=== PATIENT | male | born 1960 | race Caucasian/White ===

== ENCOUNTER 2016-11-19 15:40 | Inpatient (IN) | payer MEDICAID ==
[~2016-11-19] VITALS: Ht 177.8 cm; Wt 71.7 kg
[2016-11-19] MEDS ORDERED: ONDANSETRON HCL 4MG/2ML VIAL IV STA (15:54)
[2016-11-19 16:39] LABS: BASOPHILS % 0.7 % (0.0-2.0); EOSINOPHILS % 1.7 % (0.0-5.0); HEMATOCRIT. 27.4 % (42.0-52.0); MEAN CORPUSCULAR VOLUME 85.5 fL (80.0-94.0); MEAN PLATELET VOLUME 7.9 fl (7.4-10.4); MONOCYTES % 7.7 % (2.0-8.0); NEUTROPHILS % 80.9 % (40.0-76.0); PLATELET 257 x1000/uL (130-400); RED BLOOD CELL COUNT 3.21 mill/uL (4.7-6.1); RED CELL DISTRIBUTION WIDTH 17.9 % (11.6-14.6)
[2016-11-19 16:43] LABS: CHLORIDE 94 mEq/L (98-107)
[2016-11-19 16:44] LABS: INR 1.1; PARTIAL THROMBOPLASTIN TIME 31.8 sec (23.4-31.0); PROTHROMBIN TIME 11.5 sec (9.4-11.6)
[2016-11-19 16:51] LABS: CARBON DIOXIDE 30 mEq/L (21-32)
[2016-11-19 16:53] LABS: TROPONIN I < 0.02 ng/mL (0.00-0.04)
[2016-11-19] MEDS ORDERED: HYDROCODONE/ACETAMINOPHEN 5/325MG TABLET PO ONE (17:45)
[2016-11-19] MEDS ORDERED: MAGNESIUM/ALUMINUM HYDROXIDE/SIMETHICONE 30ML UDC PO PRN (20:15)
[2016-11-19] MEDS ORDERED: IPRATROPIUM/ALBUTEROL 0.5-3(2.5)MG/3ML NEB INH PRN (20:15)
[2016-11-19] MEDS ORDERED: ONDANSETRON HCL 4MG/2ML VIAL IV PRN (20:15)
[2016-11-19] MEDS ORDERED: CLONIDINE 0.1MG TABLET PO PRN (20:15)
[2016-11-19] MEDS ORDERED: DOCUSATE SODIUM 100MG CAPSULE PO PRN (20:15)
[2016-11-19 22:37] LABS: CREATINE KINASE 35 IU/L (39-308); CREATINE KINASE MB FRACTION 2.4 ng/mL (0.5-3.6); TROPONIN I < 0.02 ng/mL (0.00-0.04)
[2016-11-20] VITALS (7 sets, daily range): BP systolic 142–170; BP diastolic 52–85
[2016-11-20] MEDS ORDERED: DEXTROSE 50% WATER 50ML SYRINGE IV PRN (02:15)
[2016-11-20] MEDS: HYDROCODONE/ACETAMINOPHEN 5/325MG TABLET PO PRN (05:20)
[2016-11-20] MEDS: BLOOD SUGAR DIAGNOSTIC STRIP TEST SCH ×4 (07:20→21:00)
[2016-11-20 07:30] LABS: HEMATOCRIT. 32.9 % (42.0-52.0); HEMOGLOBIN. 10.9 g/dL (14.0-18.0); MEAN CORPUSCULAR HEMOGLOBIN 28.7 pg (28.0-32.0); MEAN CORPUSCULAR VOLUME 86.8 fL (80.0-94.0); MEAN PLATELET VOLUME 8.5 fl (7.4-10.4); PLATELET 357 x1000/uL (130-400); RED BLOOD CELL COUNT 3.79 mill/uL (4.7-6.1); RED CELL DISTRIBUTION WIDTH 18.3 % (11.6-14.6)
[2016-11-20 07:44] LABS: CARBON DIOXIDE 28 mEq/L (21-32); CHLORIDE 93 mEq/L (98-107)
[2016-11-20] MEDS: INSULIN LISPRO 100 UNITS/ML SUBCUT SCH ×4 (07:50→21:00)
[2016-11-20 07:55] LABS: CREATINE KINASE 46 IU/L (39-308); CREATINE KINASE MB FRACTION 3.3 ng/mL (0.5-3.6); HDL CHOLESTEROL 54 mg/dL (40-59); LDL CHOLESTEROL 74 mg/dL (5-100); TROPONIN I < 0.02 ng/mL (0.00-0.04)
[2016-11-20 11:11] LABS: GLUCOSE URINE NEGATIVE (NEGATIVE); KETONES URINE TRACE (NEGATIVE); LEUKOCYTE ESTERASE URINE 3+ (NEGATIVE); NITRITE URINE NEGATIVE (NEGATIVE); OCCULT BLOOD URINE 2+ (NEGATIVE); PROTEIN URINE 4+ (NEGATIVE); SPECIFIC GRAVITY URINE 1.016 (1.005-1.030); UROBILINOGEN URINE 0.2 E.U./dL (0.2-1.0)
[2016-11-20 11:13] LABS: CLARITY URINE TURBID (CLEAR); COLOR URINE YELLOW (YELLOW)
[2016-11-20 11:56] LABS: *AMPHETAMINES SCREEN URINE NEGATIVE (NEGATIVE); *BARBITURATES SCREEN URINE NEGATIVE (NEGATIVE); *BENZODIAZEPINES SCREEN URINE NEGATIVE (NEGATIVE); *COCAINE SCREEN URINE NEGATIVE (NEGATIVE); CANNABINOID URINE SCREEN NEGATIVE (NEGATIVE); METHADONE URINE SCREEN NEGATIVE (NEGATIVE); OPIATES URINE SCREEN NEGATIVE (NEGATIVE); PHENCYCLIDINE URINE SCREEN NEGATIVE (NEGATIVE)
[2016-11-20] MEDS ORDERED: DOCUSATE SODIUM 100MG CAPSULE PO PRN (12:00)
[2016-11-20] MEDS ORDERED: DIPHENHYDRAMINE 50MG/ML VIAL IV PRN (12:00)
[2016-11-20] MEDS ORDERED: IPRATROPIUM/ALBUTEROL 0.5-3(2.5)MG/3ML NEB INH PRN (12:00)
[2016-11-20] MEDS ORDERED: HYDROCODONE/ACETAMINOPHEN 5/325MG TABLET PO PRN (12:00)
[2016-11-20] MEDS ORDERED: MAGNESIUM/ALUMINUM HYDROXIDE/SIMETHICONE 30ML UDC PO PRN (12:00)
[2016-11-20] MEDS ORDERED: ACETAMINOPHEN 325MG TABLET PO PRN (12:00)
[2016-11-20] MEDS ORDERED: ONDANSETRON HCL 4MG/2ML VIAL IV PRN (12:00)
[2016-11-20] MEDS ORDERED: GUAIFENESIN 200MG/10ML SUGAR FREE UDC PO PRN (12:00)
[2016-11-20] MEDS ORDERED: CLONIDINE 0.1MG TABLET PO PRN (12:00)
[2016-11-20] MEDS ORDERED: CEFTRIAXONE 1 G PREMIX 50 ML IV SCH (12:00)
[2016-11-20 12:01] LABS: PLATELET ESTIMATE NORMAL
[2016-11-20] MEDS ORDERED: ROCEPHIN (CEFTRIAXONE) XX SCH (12:30)
[2016-11-20] MEDS ORDERED: POTASSIUM CHLORIDE 20MEQ TABLET SR PO SCH (14:15)
[2016-11-20] MEDS: CEFTRIAXONE 1 G PREMIX 50 ML IV SCH (14:23)
[2016-11-20] MEDS ORDERED: POTASSIUM CHLORIDE INJ 40 MEQ in DEXT 5% WATER 250 ML IV SCH (14:30)
[2016-11-20] MEDS ORDERED: CHOL20004 PO (16:06)
[2016-11-20] MEDS ORDERED: CLON0.3T PO (16:06)
[2016-11-20] MEDS ORDERED: LEVO50TA PO (16:06)
[2016-11-20] MEDS ORDERED: TRAM50TA3 PO (16:06)
[2016-11-20] MEDS ORDERED: FURO80TA87 PO (16:06)
[2016-11-20] MEDS ORDERED: COR6 PO (16:06)
[2016-11-20] MEDS ORDERED: HYDR-4134 PO (16:06)
[2016-11-20] MEDS ORDERED: AMLO5TAB4 PO (16:06)
[2016-11-20] MEDS ORDERED: PROT40 PO (16:06)
[2016-11-20] MEDS ORDERED: DOXA2TAB PO (16:06)
[2016-11-20 16:42] LABS: CREATINE KINASE 35 IU/L (39-308); CREATINE KINASE MB FRACTION 2.7 ng/mL (0.5-3.6); TROPONIN I < 0.02 ng/mL (0.00-0.04)
[2016-11-20] MEDS: ACETAMINOPHEN 325MG TABLET PO PRN (16:52)
[2016-11-20 18:32] LABS: CHLORIDE 95 mEq/L (98-107)
[2016-11-20 18:40] LABS: CARBON DIOXIDE 28 mEq/L (21-32)
[2016-11-20] MEDS: DOXAZOSIN MESYLATE 2MG TABLET PO SCH (21:00)
[2016-11-20] MEDS: CARVEDILOL 6.25 MG TABLET PO SCH (21:00)
[2016-11-20] MEDS: TRAZODONE HCL 100MG TABLET PO SCH ×2 (21:02→22:12)
[2016-11-20] MEDS: CLONIDINE 0.3MG TABLET PO SCH (22:00)
[2016-11-20] MEDS: HYDRALAZINE HCL 50MG TABLET PO SCH (22:13)
[2016-11-20 22:50] LABS: CREATINE KINASE 36 IU/L (39-308); CREATINE KINASE MB FRACTION 3.5 ng/mL (0.5-3.6); TROPONIN I < 0.02 ng/mL (0.00-0.04)
[2016-11-21] VITALS: BP 105/60
[2016-11-21] MEDS: ACETAMINOPHEN 325MG TABLET PO PRN ×3 (02:45→22:10)
[2016-11-21 04:00] VITALS: BP 144/59
[2016-11-21] MEDS: HYDRALAZINE HCL 50MG TABLET PO SCH ×3 (06:00→22:08)
[2016-11-21] MEDS: CLONIDINE 0.3MG TABLET PO SCH ×3 (06:00→22:08)
[2016-11-21 06:28] LABS: BASOPHILS % 0.6 % (0.0-2.0); EOSINOPHILS % 0.8 % (0.0-5.0); HEMATOCRIT. 28.2 % (42.0-52.0); HEMOGLOBIN. 9.3 g/dL (14.0-18.0); LYMPHOCYTES % 7.7 % (20.0-50.0); MEAN CORPUSCULAR HEMOGLOBIN 28.5 pg (28.0-32.0); MEAN CORPUSCULAR VOLUME 86.4 fL (80.0-94.0); MEAN PLATELET VOLUME 8.2 fl (7.4-10.4); MONOCYTES % 6.3 % (2.0-8.0); NEUTROPHILS % 84.6 % (40.0-76.0); PLATELET 267 x1000/uL (130-400); RED BLOOD CELL COUNT 3.26 mill/uL (4.7-6.1); RED CELL DISTRIBUTION WIDTH 17.4 % (11.6-14.6)
[2016-11-21] MEDS: PANTOPRAZOLE 40MG DR TABLET PO SCH ×2 (06:33→07:20)
[2016-11-21] MEDS: LEVOTHYROXINE SODIUM 50MCG TABLET PO SCH ×2 (06:33→07:20)
[2016-11-21] MEDS: BLOOD SUGAR DIAGNOSTIC STRIP TEST SCH ×4 (06:34→21:00)
[2016-11-21] MEDS: INSULIN LISPRO 100 UNITS/ML SUBCUT SCH ×4 (06:37→22:10)
[2016-11-21 06:38] LABS: T4 FREE 1.05 ng/dL (0.76-1.46)
[2016-11-21 07:36] VITALS: BP 170/66
[2016-11-21] MEDS: AMLODIPINE 5MG TABLET PO SCH (09:00)
[2016-11-21] MEDS: CARVEDILOL 6.25 MG TABLET PO SCH ×2 (09:00→22:09)
[2016-11-21] MEDS: FUROSEMIDE 80MG TABLET PO SCH (10:26)
[2016-11-21] MEDS: CHOLECALCIFEROL (D3) 1000 UNIT TABLET PO SCH (10:26)
[2016-11-21] MEDS: CEFTRIAXONE 1 G PREMIX 50 ML IV SCH (10:30)
[2016-11-21 12:15] VITALS: BP 182/76
[2016-11-21] MEDS ORDERED: NAPROXEN 500MG TABLET PO PRN (15:45)
[2016-11-21 16:00] VITALS: BP 153/68
[2016-11-21 20:00] VITALS: BP 147/62
[2016-11-21] MEDS: EPOETIN ALFA 4000UNITS/ML VIAL SUBCUT SCH (22:08)
[2016-11-21] MEDS: TRAZODONE HCL 100MG TABLET PO SCH (22:08)
[2016-11-21] MEDS: DOXAZOSIN MESYLATE 2MG TABLET PO SCH (22:09)
[2016-11-22] VITALS: BP 159/66
[2016-11-22 04:00] VITALS: BP 159/66
[2016-11-22] MEDS: CLONIDINE 0.3MG TABLET PO SCH ×3 (06:00→23:09)
[2016-11-22] MEDS: HYDRALAZINE HCL 50MG TABLET PO SCH ×3 (06:09→23:08)
[2016-11-22] MEDS: BLOOD SUGAR DIAGNOSTIC STRIP TEST SCH ×4 (06:09→21:00)
[2016-11-22] MEDS: LEVOTHYROXINE SODIUM 50MCG TABLET PO SCH (06:09)
[2016-11-22] MEDS: PANTOPRAZOLE 40MG DR TABLET PO SCH (06:09)
[2016-11-22 06:39] LABS: BASOPHILS % 0.5 % (0.0-2.0); EOSINOPHILS % 1.2 % (0.0-5.0); HEMATOCRIT. 31.2 % (42.0-52.0); HEMOGLOBIN. 10.2 g/dL (14.0-18.0); LYMPHOCYTES % 7.8 % (20.0-50.0); MEAN CORPUSCULAR HEMOGLOBIN 28.4 pg (28.0-32.0); MEAN CORPUSCULAR VOLUME 86.8 fL (80.0-94.0); MEAN PLATELET VOLUME 8.1 fl (7.4-10.4); MONOCYTES % 8.8 % (2.0-8.0); NEUTROPHILS % 81.7 % (40.0-76.0); PLATELET 283 x1000/uL (130-400); RED BLOOD CELL COUNT 3.59 mill/uL (4.7-6.1); RED CELL DISTRIBUTION WIDTH 17.6 % (11.6-14.6)
[2016-11-22] MEDS: INSULIN LISPRO 100 UNITS/ML SUBCUT SCH ×4 (07:50→21:00)
[2016-11-22 08:14] VITALS: BP 147/65
[2016-11-22] MEDS: CEFTRIAXONE 1 G PREMIX 50 ML IV SCH (08:54)
[2016-11-22] MEDS: AMLODIPINE 5MG TABLET PO SCH (09:00)
[2016-11-22] MEDS: FUROSEMIDE 80MG TABLET PO SCH (09:00)
[2016-11-22] MEDS: CHOLECALCIFEROL (D3) 1000 UNIT TABLET PO SCH (09:00)
[2016-11-22] MEDS: CARVEDILOL 6.25 MG TABLET PO SCH ×2 (09:00→21:00)
[2016-11-22] MEDS: ACETAMINOPHEN 325MG TABLET PO PRN ×2 (09:18→23:15)
[2016-11-22 12:24] VITALS: BP 139/55
[2016-11-22 16:07] VITALS: BP 149/65
[2016-11-22 16:11] LABS: CLARITY URINE TURBID (CLEAR); COLOR URINE YELLOW (YELLOW); GLUCOSE URINE NEGATIVE (NEGATIVE); KETONES URINE NEGATIVE (NEGATIVE); LEUKOCYTE ESTERASE URINE 3+ (NEGATIVE); NITRITE URINE NEGATIVE (NEGATIVE); OCCULT BLOOD URINE 2+ (NEGATIVE); PROTEIN URINE 4+ (NEGATIVE); UROBILINOGEN URINE 0.2 E.U./dL (0.2-1.0)
[2016-11-22 20:00] VITALS: BP 156/64
[2016-11-22] MEDS: TRAZODONE HCL 100MG TABLET PO SCH (21:12)
[2016-11-22] MEDS: DOXAZOSIN MESYLATE 2MG TABLET PO SCH (21:12)
[2016-11-23] VITALS: BP 158/62
[2016-11-23 04:00] VITALS: BP 149/54
[2016-11-23] MEDS: HYDRALAZINE HCL 50MG TABLET PO SCH ×3 (06:00→21:39)
[2016-11-23] MEDS: CLONIDINE 0.3MG TABLET PO SCH ×3 (06:00→23:20)
[2016-11-23] MEDS ORDERED: NORMAL SALINE 0.9% 10 ML SYR ONE (06:22)
[2016-11-23] MEDS ORDERED: BUPIVACAINE HCL/PF 0.25% (2.5MG/ML) 10ML ONE (06:22)
[2016-11-23] MEDS ORDERED: BACITRACIN 50,000 UNITS/VIAL ONE (06:23)
[2016-11-23] MEDS ORDERED: LIDOCAINE HCL 1% 20ML VIAL (Pyxis) INJ ONE (06:23)
[2016-11-23] MEDS ORDERED: BUPIVACAINE HCL/PF 0.5% (5MG/ML) 10ML ONE (06:25)
[2016-11-23] MEDS: LEVOTHYROXINE SODIUM 50MCG TABLET PO SCH (06:45)
[2016-11-23] MEDS: BLOOD SUGAR DIAGNOSTIC STRIP TEST SCH ×4 (06:46→21:18)
[2016-11-23 07:17] LABS: BASOPHILS % 0.5 % (0.0-2.0); EOSINOPHILS % 0.9 % (0.0-5.0); HEMATOCRIT. 29.3 % (42.0-52.0); HEMOGLOBIN. 9.4 g/dL (14.0-18.0); LYMPHOCYTES % 7.9 % (20.0-50.0); MEAN CORPUSCULAR HEMOGLOBIN 27.5 pg (28.0-32.0); MEAN CORPUSCULAR VOLUME 86.1 fL (80.0-94.0); MEAN PLATELET VOLUME 8.4 fl (7.4-10.4); MONOCYTES % 8.6 % (2.0-8.0); NEUTROPHILS % 82.1 % (40.0-76.0); PLATELET 262 x1000/uL (130-400); RED CELL DISTRIBUTION WIDTH 17.8 % (11.6-14.6)
[2016-11-23] MEDS ORDERED: FENTANYL CITRATE/PF 50MCG/ML 2ML VIAL ONE (07:19)
[2016-11-23] MEDS ORDERED: MIDAZOLAM HCL 2 MG/2 ML VIAL ONE (07:19)
[2016-11-23] MEDS ORDERED: HYDROMORPHONE HCL/PF 2MG/ML CPJ IV PRN (07:45)
[2016-11-23] MEDS ORDERED: ONDANSETRON HCL 4MG/2ML VIAL IV PRN (07:45)
[2016-11-23] MEDS ORDERED: LABETALOL HCL 20MG/4ML CARPUJECT IV PRN (07:45)
[2016-11-23] MEDS ORDERED: MEPERIDINE HCL/PF 25MG/ML CPJ IV PRN (07:45)
[2016-11-23] MEDS: INSULIN LISPRO 100 UNITS/ML SUBCUT SCH ×4 (07:50→21:00)
[2016-11-23] MEDS: CARVEDILOL 6.25 MG TABLET PO SCH ×2 (07:58→21:00)
[2016-11-23] MEDS: AMLODIPINE 5MG TABLET PO SCH (07:58)
[2016-11-23] MEDS: FUROSEMIDE 80MG TABLET PO SCH (07:58)
[2016-11-23] MEDS: FAMOTIDINE 20MG TABLET PO SCH (07:59)
[2016-11-23] MEDS: CHOLECALCIFEROL (D3) 1000 UNIT TABLET PO SCH (07:59)
[2016-11-23] MEDS: CEFTRIAXONE 1 G PREMIX 50 ML IV SCH (09:00)
[2016-11-23 10:40] VITALS: BP 174/72
[2016-11-23 12:28] VITALS: BP 174/72
[2016-11-23] MEDS: HYDROCODONE/ACETAMINOPHEN 5/325MG TABLET PO PRN (12:35)
[2016-11-23] MEDS ORDERED: MORPHINE SULFATE 2 MG/ML CPJ (NOT FOR IM USE) IV PRN (13:00)
[2016-11-23 16:00] VITALS: BP 172/86
[2016-11-23] MEDS ORDERED: VANCOMYCIN 1500MG in DEXTROSE 5% WATER 250ML IV NR (18:00)
[2016-11-23] MEDS: MEROPENEM 500 MG in SODIUM CHLORIDE 0.9% 50 ML IV SCH (18:04)
[2016-11-23 20:28] VITALS: BP 153/62
[2016-11-23] MEDS: TRAZODONE HCL 100MG TABLET PO SCH (21:38)
[2016-11-23] MEDS: DOXAZOSIN MESYLATE 2MG TABLET PO SCH (21:38)
[2016-11-23] MEDS: EPOETIN ALFA 4000UNITS/ML VIAL SUBCUT SCH (21:38)
[2016-11-23] MEDS: ACETAMINOPHEN 325MG TABLET PO PRN (23:21)
[2016-11-24] VITALS: BP 161/66
[2016-11-24 04:00] VITALS: BP 163/60
[2016-11-24] MEDS: HYDRALAZINE HCL 50MG TABLET PO SCH ×3 (06:16→22:21)
[2016-11-24] MEDS: LEVOTHYROXINE SODIUM 50MCG TABLET PO SCH (06:16)
[2016-11-24] MEDS: CLONIDINE 0.3MG TABLET PO SCH ×3 (06:16→22:00)
[2016-11-24] MEDS: ACETAMINOPHEN 325MG TABLET PO PRN ×2 (06:16→22:21)
[2016-11-24] MEDS: BLOOD SUGAR DIAGNOSTIC STRIP TEST SCH ×4 (06:16→21:42)
[2016-11-24] MEDS: INSULIN LISPRO 100 UNITS/ML SUBCUT SCH ×4 (07:50→21:00)
[2016-11-24 07:55] LABS: BASOPHILS % 0.7 % (0.0-2.0); EOSINOPHILS % 1.9 % (0.0-5.0); HEMATOCRIT. 29.6 % (42.0-52.0); HEMOGLOBIN. 9.8 g/dL (14.0-18.0); MEAN CORPUSCULAR HEMOGLOBIN 28.5 pg (28.0-32.0); MEAN CORPUSCULAR VOLUME 86.1 fL (80.0-94.0); MEAN PLATELET VOLUME 8.5 fl (7.4-10.4); MONOCYTES % 8.9 % (2.0-8.0); NEUTROPHILS % 79.5 % (40.0-76.0); PLATELET 276 x1000/uL (130-400); RED BLOOD CELL COUNT 3.44 mill/uL (4.7-6.1); RED CELL DISTRIBUTION WIDTH 17.5 % (11.6-14.6)
[2016-11-24 08:27] VITALS: BP 153/62
[2016-11-24] MEDS: CARVEDILOL 6.25 MG TABLET PO SCH ×2 (08:49→22:22)
[2016-11-24] MEDS: AMLODIPINE 5MG TABLET PO SCH (08:52)
[2016-11-24] MEDS: FAMOTIDINE 20MG TABLET PO SCH (08:52)
[2016-11-24] MEDS: CHOLECALCIFEROL (D3) 1000 UNIT TABLET PO SCH (08:52)
[2016-11-24] MEDS: FUROSEMIDE 80MG TABLET PO SCH (08:52)
[2016-11-24 12:57] VITALS: BP 144/59
[2016-11-24 16:30] VITALS: BP 155/64
[2016-11-24] MEDS: MEROPENEM 500 MG in SODIUM CHLORIDE 0.9% 50 ML IV SCH (18:16)
[2016-11-24 20:00] VITALS: BP 152/62
[2016-11-24] MEDS: DOXAZOSIN MESYLATE 2MG TABLET PO SCH (22:21)
[2016-11-24] MEDS: TRAZODONE HCL 100MG TABLET PO SCH (22:22)
[2016-11-25] VITALS (7 sets, daily range): BP systolic 147–178; BP diastolic 59–85
[2016-11-25] MEDS: CLONIDINE 0.3MG TABLET PO SCH ×3 (06:00→21:43)
[2016-11-25] MEDS: HYDRALAZINE HCL 50MG TABLET PO SCH ×3 (06:00→21:43)
[2016-11-25] MEDS: BLOOD SUGAR DIAGNOSTIC STRIP TEST SCH ×4 (06:02→20:46)
[2016-11-25] MEDS: LEVOTHYROXINE SODIUM 50MCG TABLET PO SCH (06:03)
[2016-11-25] MEDS: INSULIN LISPRO 100 UNITS/ML SUBCUT SCH ×4 (07:35→21:00)
[2016-11-25] MEDS: CARVEDILOL 6.25 MG TABLET PO SCH ×2 (07:36→21:43)
[2016-11-25] MEDS: AMLODIPINE 5MG TABLET PO SCH (07:36)
[2016-11-25 07:55] LABS: BASOPHILS % 0.5 % (0.0-2.0); EOSINOPHILS % 1.9 % (0.0-5.0); HEMATOCRIT. 27.6 % (42.0-52.0); HEMOGLOBIN. 9.1 g/dL (14.0-18.0); LYMPHOCYTES % 9.6 % (20.0-50.0); MEAN CORPUSCULAR HEMOGLOBIN 28.3 pg (28.0-32.0); MEAN CORPUSCULAR VOLUME 85.4 fL (80.0-94.0); MEAN PLATELET VOLUME 8.7 fl (7.4-10.4); MONOCYTES % 9.1 % (2.0-8.0); NEUTROPHILS % 78.9 % (40.0-76.0); PLATELET 271 x1000/uL (130-400); RED BLOOD CELL COUNT 3.23 mill/uL (4.7-6.1); RED CELL DISTRIBUTION WIDTH 17.3 % (11.6-14.6)
[2016-11-25] MEDS: CHOLECALCIFEROL (D3) 1000 UNIT TABLET PO SCH (11:11)
[2016-11-25] MEDS: FUROSEMIDE 80MG TABLET PO SCH (11:12)
[2016-11-25] MEDS: ACETAMINOPHEN 325MG TABLET PO PRN (11:12)
[2016-11-25] MEDS: FAMOTIDINE 20MG TABLET PO SCH (11:12)
[2016-11-25] MEDS ORDERED: HYDROCODONE/ACETAMINOPHEN 5/325MG TABLET PO PRN (12:30)
[2016-11-25] MEDS ORDERED: VANCOMYCIN 1 G PREMIX 200 ML IV SCH (14:00)
[2016-11-25] MEDS: MEROPENEM 500 MG in SODIUM CHLORIDE 0.9% 50 ML IV SCH (19:25)
[2016-11-25] MEDS: EPOETIN ALFA 4000UNITS/ML VIAL SUBCUT SCH (20:44)
[2016-11-25] MEDS: DOXAZOSIN MESYLATE 2MG TABLET PO SCH (21:43)
[2016-11-25] MEDS: TRAZODONE HCL 100MG TABLET PO SCH (21:43)
[2016-11-26 00:20] VITALS: BP 165/62
[2016-11-26 06:38] LABS: BASOPHILS % 0.6 % (0.0-2.0); EOSINOPHILS % 2.1 % (0.0-5.0); HEMATOCRIT. 29.3 % (42.0-52.0); HEMOGLOBIN. 9.6 g/dL (14.0-18.0); LYMPHOCYTES % 10.5 % (20.0-50.0); MEAN CORPUSCULAR HEMOGLOBIN 28.3 pg (28.0-32.0); MEAN CORPUSCULAR VOLUME 86.1 fL (80.0-94.0); MEAN PLATELET VOLUME 7.8 fl (7.4-10.4); MONOCYTES % 9.6 % (2.0-8.0); NEUTROPHILS % 77.2 % (40.0-76.0); PLATELET 279 x1000/uL (130-400); RED CELL DISTRIBUTION WIDTH 17.5 % (11.6-14.6)
[2016-11-26] MEDS: CLONIDINE 0.3MG TABLET PO SCH ×3 (06:54→21:47)
[2016-11-26] MEDS: BLOOD SUGAR DIAGNOSTIC STRIP TEST SCH ×4 (06:54→20:27)
[2016-11-26] MEDS: HYDRALAZINE HCL 50MG TABLET PO SCH ×3 (06:54→21:43)
[2016-11-26] MEDS: LEVOTHYROXINE SODIUM 50MCG TABLET PO SCH (06:54)
[2016-11-26 07:00] VITALS: BP 156/62
[2016-11-26] MEDS: INSULIN LISPRO 100 UNITS/ML SUBCUT SCH ×4 (07:50→20:39)
[2016-11-26] MEDS: AMLODIPINE 5MG TABLET PO SCH (08:21)
[2016-11-26] MEDS: FAMOTIDINE 20MG TABLET PO SCH (08:22)
[2016-11-26] MEDS: CARVEDILOL 6.25 MG TABLET PO SCH ×2 (08:22→20:39)
[2016-11-26] MEDS: FUROSEMIDE 80MG TABLET PO SCH (08:22)
[2016-11-26] MEDS: CHOLECALCIFEROL (D3) 1000 UNIT TABLET PO SCH (08:22)
[2016-11-26] MEDS: LOSARTAN POTASSIUM 25 MG TABLET PO SCH (08:22)
[2016-11-26 12:32] VITALS: BP 140/61
[2016-11-26 16:02] VITALS: BP 137/51
[2016-11-26] MEDS: MEROPENEM 500 MG in SODIUM CHLORIDE 0.9% 50 ML IV SCH (17:04)
[2016-11-26] MEDS: ACETAMINOPHEN 325MG TABLET PO PRN ×2 (17:05→23:35)
[2016-11-26] MEDS: TRAZODONE HCL 100MG TABLET PO SCH (20:36)
[2016-11-26] MEDS: DOXAZOSIN MESYLATE 2MG TABLET PO SCH (20:36)
[2016-11-26 20:54] VITALS: BP 161/63
[2016-11-27 00:23] VITALS: BP 145/56
[2016-11-27 04:00] VITALS: BP 157/62
[2016-11-27] MEDS: CLONIDINE 0.3MG TABLET PO SCH ×3 (05:13→21:17)
[2016-11-27] MEDS: HYDRALAZINE HCL 50MG TABLET PO SCH ×3 (05:20→21:16)
[2016-11-27] MEDS: BLOOD SUGAR DIAGNOSTIC STRIP TEST SCH ×4 (06:21→21:16)
[2016-11-27] MEDS: LEVOTHYROXINE SODIUM 50MCG TABLET PO SCH (06:21)
[2016-11-27 06:56] LABS: BASOPHILS % 0.7 % (0.0-2.0); EOSINOPHILS % 1.9 % (0.0-5.0); HEMATOCRIT. 28.2 % (42.0-52.0); HEMOGLOBIN. 9.3 g/dL (14.0-18.0); LYMPHOCYTES % 11.7 % (20.0-50.0); MEAN CORPUSCULAR HEMOGLOBIN 28.4 pg (28.0-32.0); MEAN CORPUSCULAR VOLUME 85.9 fL (80.0-94.0); MEAN PLATELET VOLUME 7.9 fl (7.4-10.4); NEUTROPHILS % 77.7 % (40.0-76.0); PLATELET 277 x1000/uL (130-400); RED BLOOD CELL COUNT 3.29 mill/uL (4.7-6.1); RED CELL DISTRIBUTION WIDTH 17.6 % (11.6-14.6)
[2016-11-27 08:00] VITALS: BP 147/61
[2016-11-27] MEDS: LOSARTAN POTASSIUM 25 MG TABLET PO SCH (08:58)
[2016-11-27] MEDS: FUROSEMIDE 80MG TABLET PO SCH (08:58)
[2016-11-27] MEDS: FAMOTIDINE 20MG TABLET PO SCH (08:58)
[2016-11-27] MEDS: CHOLECALCIFEROL (D3) 1000 UNIT TABLET PO SCH (08:58)
[2016-11-27] MEDS: AMLODIPINE 5MG TABLET PO SCH (08:59)
[2016-11-27] MEDS: CARVEDILOL 6.25 MG TABLET PO SCH ×2 (08:59→21:16)
[2016-11-27] MEDS: INSULIN LISPRO 100 UNITS/ML SUBCUT SCH ×4 (09:00→21:00)
[2016-11-27 12:00] VITALS: BP 140/56
[2016-11-27 16:00] VITALS: BP 128/62
[2016-11-27] MEDS: MEROPENEM 500 MG in SODIUM CHLORIDE 0.9% 50 ML IV SCH (17:29)
[2016-11-27 20:00] VITALS: BP 164/69
[2016-11-27] MEDS: DOXAZOSIN MESYLATE 2MG TABLET PO SCH (21:15)
[2016-11-27] MEDS: TRAZODONE HCL 100MG TABLET PO SCH (21:16)
[2016-11-27] MEDS: ACETAMINOPHEN 325MG TABLET PO PRN (21:17)
[2016-11-28] VITALS: BP 155/63
[2016-11-28 04:00] VITALS: BP 146/99
[2016-11-28] MEDS: CLONIDINE 0.3MG TABLET PO SCH ×3 (06:00→22:00)
[2016-11-28] MEDS: HYDRALAZINE HCL 50MG TABLET PO SCH ×3 (06:00→22:00)
[2016-11-28] MEDS: LEVOTHYROXINE SODIUM 50MCG TABLET PO SCH (06:29)
[2016-11-28 06:45] LABS: FERRITIN 429 ng/mL (22-322)
[2016-11-28 06:46] LABS: CARCINO EMBRYONIC ANTIGEN 1.3 ng/ml
[2016-11-28] MEDS: BLOOD SUGAR DIAGNOSTIC STRIP TEST SCH ×4 (07:11→21:38)
[2016-11-28] MEDS: INSULIN LISPRO 100 UNITS/ML SUBCUT SCH ×4 (07:50→22:11)
[2016-11-28 08:00] VITALS: BP 151/57
[2016-11-28] MEDS: AMLODIPINE 5MG TABLET PO SCH (09:00)
[2016-11-28] MEDS: CARVEDILOL 6.25 MG TABLET PO SCH ×2 (09:00→22:05)
[2016-11-28] MEDS: LOSARTAN POTASSIUM 25 MG TABLET PO SCH (09:00)
[2016-11-28] MEDS: FAMOTIDINE 20MG TABLET PO SCH (09:10)
[2016-11-28] MEDS: FUROSEMIDE 80MG TABLET PO SCH (09:10)
[2016-11-28] MEDS: CHOLECALCIFEROL (D3) 1000 UNIT TABLET PO SCH (09:10)
[2016-11-28 09:12] LABS: VITAMIN B12 SERUM > 2000.0 pg/mL (211-911)
[2016-11-28] MEDS: ACETAMINOPHEN 325MG TABLET PO PRN ×2 (09:18→22:05)
[2016-11-28 09:36] LABS: BASOPHILS % 0.6 % (0.0-2.0); EOSINOPHILS % 2.6 % (0.0-5.0); HEMATOCRIT. 28.7 % (42.0-52.0); HEMOGLOBIN. 9.5 g/dL (14.0-18.0); LYMPHOCYTES % 9.6 % (20.0-50.0); MEAN CORPUSCULAR HEMOGLOBIN 28.5 pg (28.0-32.0); MEAN CORPUSCULAR VOLUME 85.8 fL (80.0-94.0); MEAN PLATELET VOLUME 7.9 fl (7.4-10.4); MONOCYTES % 6.6 % (2.0-8.0); NEUTROPHILS % 80.6 % (40.0-76.0); PLATELET 273 x1000/uL (130-400); RED BLOOD CELL COUNT 3.35 mill/uL (4.7-6.1); RED CELL DISTRIBUTION WIDTH 17.3 % (11.6-14.6)
[2016-11-28 12:01] VITALS: BP 171/85
[2016-11-28 16:00] VITALS: BP 172/70
[2016-11-28] MEDS: MEROPENEM 500 MG in SODIUM CHLORIDE 0.9% 50 ML IV SCH (17:00)
[2016-11-28] MEDS ORDERED: VANCOMYCIN 1 G PREMIX 200 ML IV NR (18:00)
[2016-11-28 20:00] VITALS: BP 154/57
[2016-11-28] MEDS ORDERED: EPOETIN ALFA 10000UNITS/ML VIAL SUBCUT SCH (21:00)
[2016-11-28] MEDS: DOXAZOSIN MESYLATE 2MG TABLET PO SCH (22:05)
[2016-11-28] MEDS: TRAZODONE HCL 100MG TABLET PO SCH (22:05)
[2016-11-29] VITALS (7 sets, daily range): BP systolic 129–166; BP diastolic 54–68
[2016-11-29] MEDS: CLONIDINE 0.3MG TABLET PO SCH ×3 (06:00→22:00)
[2016-11-29] MEDS: BLOOD SUGAR DIAGNOSTIC STRIP TEST SCH ×4 (06:36→21:00)
[2016-11-29] MEDS: LEVOTHYROXINE SODIUM 50MCG TABLET PO SCH (06:36)
[2016-11-29] MEDS: HYDRALAZINE HCL 50MG TABLET PO SCH ×3 (06:36→22:00)
[2016-11-29] MEDS: INSULIN LISPRO 100 UNITS/ML SUBCUT SCH ×4 (07:28→21:00)
[2016-11-29 08:06] LABS: BASOPHILS % 0.6 % (0.0-2.0); EOSINOPHILS % 2.4 % (0.0-5.0); HEMATOCRIT. 31.7 % (42.0-52.0); HEMOGLOBIN. 10.5 g/dL (14.0-18.0); LYMPHOCYTES % 13.8 % (20.0-50.0); MEAN CORPUSCULAR HEMOGLOBIN 28.3 pg (28.0-32.0); MEAN CORPUSCULAR VOLUME 85.8 fL (80.0-94.0); MEAN PLATELET VOLUME 8.2 fl (7.4-10.4); MONOCYTES % 8.7 % (2.0-8.0); NEUTROPHILS % 74.5 % (40.0-76.0); PLATELET 274 x1000/uL (130-400); RED CELL DISTRIBUTION WIDTH 16.9 % (11.6-14.6)
[2016-11-29] MEDS: CARVEDILOL 6.25 MG TABLET PO SCH ×2 (09:00→21:34)
[2016-11-29] MEDS: FUROSEMIDE 80MG TABLET PO SCH (09:07)
[2016-11-29] MEDS: FAMOTIDINE 20MG TABLET PO SCH (09:07)
[2016-11-29] MEDS: LOSARTAN POTASSIUM 25 MG TABLET PO SCH (09:07)
[2016-11-29] MEDS: CHOLECALCIFEROL (D3) 1000 UNIT TABLET PO SCH (09:07)
[2016-11-29] MEDS: AMLODIPINE 5MG TABLET PO SCH (09:08)
[2016-11-29] MEDS: ACETAMINOPHEN 325MG TABLET PO PRN ×2 (09:11→21:33)
[2016-11-29] MEDS: MEGESTROL ACETATE 400 MG/10 ML UDC PO SCH (13:00)
[2016-11-29] MEDS: ASCORBIC ACID 250 MG TABLET PO SCH (17:15)
[2016-11-29] MEDS: MEROPENEM 500 MG in SODIUM CHLORIDE 0.9% 50 ML IV SCH (17:15)
[2016-11-29] MEDS: DOXAZOSIN MESYLATE 2MG TABLET PO SCH (21:34)
[2016-11-29] MEDS: TRAZODONE HCL 100MG TABLET PO SCH (21:34)
[2016-11-30 05:11] VITALS: BP 153/55
[2016-11-30] MEDS: CLONIDINE 0.3MG TABLET PO SCH ×2 (05:21→14:40)
[2016-11-30] MEDS: BLOOD SUGAR DIAGNOSTIC STRIP TEST SCH ×3 (06:17→18:15)
[2016-11-30] MEDS: HYDRALAZINE HCL 50MG TABLET PO SCH ×2 (06:17→14:41)
[2016-11-30] MEDS: LEVOTHYROXINE SODIUM 50MCG TABLET PO SCH (06:17)
[2016-11-30 06:35] LABS: BASOPHILS % 0.5 % (0.0-2.0); EOSINOPHILS % 2.4 % (0.0-5.0); HEMATOCRIT. 32.4 % (42.0-52.0); HEMOGLOBIN. 10.7 g/dL (14.0-18.0); LYMPHOCYTES % 11.5 % (20.0-50.0); MEAN CORPUSCULAR HEMOGLOBIN 28.2 pg (28.0-32.0); MEAN CORPUSCULAR VOLUME 85.4 fL (80.0-94.0); MEAN PLATELET VOLUME 8.1 fl (7.4-10.4); MONOCYTES % 7.4 % (2.0-8.0); NEUTROPHILS % 78.2 % (40.0-76.0); PLATELET 279 x1000/uL (130-400); RED BLOOD CELL COUNT 3.79 mill/uL (4.7-6.1); RED CELL DISTRIBUTION WIDTH 17.6 % (11.6-14.6)
[2016-11-30] MEDS: INSULIN LISPRO 100 UNITS/ML SUBCUT SCH ×3 (07:50→17:50)
[2016-11-30 07:54] VITALS: BP 146/70
[2016-11-30] MEDS ORDERED: ZINC SULFATE 220 MG ( 50 ) CAPSULE PO SCH (09:00)
[2016-11-30] MEDS: MEGESTROL ACETATE 400 MG/10 ML UDC PO SCH ×2 (09:00→10:49)
[2016-11-30] MEDS ORDERED: FOLIC ACID/VITAMIN B COMP W-C TABLET PO SCH (09:00)
[2016-11-30] MEDS ORDERED: POLYETHYLENE GLYCOL 3350 (17GM) 1 DOSE PACK PO SCH (10:00)
[2016-11-30] MEDS: FAMOTIDINE 20MG TABLET PO SCH (10:49)
[2016-11-30] MEDS: ASCORBIC ACID 250 MG TABLET PO SCH ×2 (10:49→18:23)
[2016-11-30] MEDS: FUROSEMIDE 80MG TABLET PO SCH (10:49)
[2016-11-30] MEDS: CARVEDILOL 6.25 MG TABLET PO SCH (10:50)
[2016-11-30] MEDS: AMLODIPINE 5MG TABLET PO SCH (10:50)
[2016-11-30] MEDS: CHOLECALCIFEROL (D3) 1000 UNIT TABLET PO SCH (10:50)
[2016-11-30] MEDS: LOSARTAN POTASSIUM 25 MG TABLET PO SCH (10:50)
[2016-11-30 12:00] VITALS: BP 173/74
[2016-11-30 16:00] VITALS: BP 153/79
[2016-11-30 16:44] VITALS: BP 153/79
== END 2016-11-30 20:38 | DRG 710 ==
LOC: ER 16:06 → 6WST 19:18 → EDBEDREQ 19:47 → ENRESERV 19:53
PROVIDERS: ADMIT Internal Medicine; ATTEND Internal Medicine
PROC: 02HV33Z Insertion of Infusion Device into Superior Vena Cava, Percutaneous Approach (ICD-10-PCS; 2016-11-19)
PROC: 5A1D60Z (ICD-10-PCS; 2016-11-19)
PROC: 0MBM0ZZ Excision of Left Hip Bursa and Ligament, Open Approach (ICD-10-PCS; 2016-11-23)
PROC: 0MBL0ZZ Excision of Right Hip Bursa and Ligament, Open Approach (ICD-10-PCS; principal; 2016-11-23 07:00)
DX: A41.9 Sepsis, unspecified organism (principal); J96.00 Acute respiratory failure, unspecified whether with hypoxia or hypercapnia; E43 Unspecified severe protein-calorie malnutrition; I50.43 Acute on chronic combined systolic (congestive) and diastolic (congestive) heart failure; J90 Pleural effusion, not elsewhere classified; D68.9 Coagulation defect, unspecified; L89.154 Pressure ulcer of sacral region, stage 4; N18.6 End stage renal disease; I13.2 Hypertensive heart and chronic kidney disease with heart failure and with stage 5 chronic kidney disease, or end stage renal disease; E11.22 Type 2 diabetes mellitus with diabetic chronic kidney disease; E83.39 Other disorders of phosphorus metabolism; N39.0 Urinary tract infection, site not specified; E87.6 Hypokalemia; E87.5 Hyperkalemia; G89.29 Other chronic pain; M54.9 Dorsalgia, unspecified; R16.0 Hepatomegaly, not elsewhere classified; N40.1 Benign prostatic hyperplasia with lower urinary tract symptoms; R33.8 Other retention of urine; L03.90 Cellulitis, unspecified; M94.0 Chondrocostal junction syndrome [Tietze]; D63.1 Anemia in chronic kidney disease; Z74.01 Bed confinement status; Z79.82 Long term (current) use of aspirin; Z79.899 Other long term (current) drug therapy; Z99.2 Dependence on renal dialysis; Z88.6 Allergy status to analgesic agent; Z78.1 Physical restraint status; Z68.22 Body mass index [BMI] 22.0-22.9, adult
CPT/HCPCS: 36415; 71010; 76700; 80048; 80053; 80061; 80202; 80305; 81001; 82378; 82550; 82553; 82607; 82728; 82962; 83540; 83550; 83615; 83690; 83735; 83880; 84439; 84443; 84484; 85025; 85044; 85610; 85730; 87040; 87070; 87075; 87086; 87106; 87205; 88304; 93005; 93306; 93970; 96374; 99285; A4216; A6261; J0696; J0885; J1815; J2185; J2250; J2405; J3010; J3370; J3480; J3490; J7030; J7040; J7050; J7060

== ENCOUNTER 2016-11-30 21:50 | Inpatient (IN) | payer MEDICAID ==
[~2016-11-30] VITALS: Ht 175.3 cm; Wt 76.2 kg
[~2016-11-30 21:50] MED LIST: AMLO5TAB4 PO; CHOL20004 PO; CLON0.3T PO; COR6 PO; DOXA2TAB PO; FURO80TA87 PO; HYDR-4134 PO; LEVO50TA PO; PROT40 PO; TRAM50TA3 PO
[2016-12-01] MEDS ORDERED: AMLODIPINE 5MG TABLET PO SCH ×2 (08:30→20:15)
[2016-12-01 13:18] LABS: BASOPHILS % 0.3 % (0.0-2.0); EOSINOPHILS % 0.9 % (0.0-5.0); HEMATOCRIT. 33.9 % (42.0-52.0); HEMOGLOBIN. 11.3 g/dL (14.0-18.0); LYMPHOCYTES % 8.3 % (20.0-50.0); MEAN CORPUSCULAR VOLUME 84.3 fL (80.0-94.0); MEAN PLATELET VOLUME 7.1 fl (7.4-10.4); MONOCYTES % 6.9 % (2.0-8.0); NEUTROPHILS % 83.6 % (40.0-76.0); PLATELET 268 x1000/uL (130-400); RED BLOOD CELL COUNT 4.03 mill/uL (4.7-6.1); RED CELL DISTRIBUTION WIDTH 17.1 % (11.6-14.6)
[2016-12-01] MEDS ORDERED: VANCOMYCIN 1 G PREMIX 200 ML IV SCH (16:30)
[2016-12-01] MEDS ORDERED: HYDROCODONE/ACETAMINOPHEN 5/325MG TABLET PO PRN (16:30)
[2016-12-01] MEDS ORDERED: IPRATROPIUM/ALBUTEROL 0.5-3(2.5)MG/3ML NEB INH PRN (16:30)
[2016-12-01] MEDS ORDERED: DIPHENHYDRAMINE 50MG/ML VIAL IV PRN (16:30)
[2016-12-01] MEDS ORDERED: ONDANSETRON HCL 4MG/2ML VIAL IV PRN (16:30)
[2016-12-01] MEDS ORDERED: CLONIDINE 0.1MG TABLET PO PRN (16:30)
[2016-12-01 20:00] VITALS: BP 186/74
[2016-12-01] MEDS ORDERED: TRAMADOL 50MG TABLET PO SCH (21:00)
[2016-12-01] MEDS: CLONIDINE 0.3MG TABLET PO SCH (22:00)
[2016-12-01] MEDS: TRAZODONE HCL 100MG TABLET PO SCH (22:00)
[2016-12-01] MEDS: HYDRALAZINE HCL 50MG TABLET PO SCH (22:00)
[2016-12-01] MEDS: CARVEDILOL 6.25 MG TABLET PO SCH (22:01)
[2016-12-02] VITALS: BP 144/56
[2016-12-02] MEDS: HYDRALAZINE HCL 50MG TABLET PO SCH ×3 (06:00→21:10)
[2016-12-02] MEDS: CLONIDINE 0.3MG TABLET PO SCH ×3 (06:00→20:07)
[2016-12-02 06:07] LABS: BASOPHILS % 0.4 % (0.0-2.0); EOSINOPHILS % 1.6 % (0.0-5.0); HEMATOCRIT. 29.2 % (42.0-52.0); HEMOGLOBIN. 9.8 g/dL (14.0-18.0); LYMPHOCYTES % 10.2 % (20.0-50.0); MEAN CORPUSCULAR HEMOGLOBIN 28.6 pg (28.0-32.0); MEAN PLATELET VOLUME 8.1 fl (7.4-10.4); MONOCYTES % 9.1 % (2.0-8.0); NEUTROPHILS % 78.7 % (40.0-76.0); PLATELET 261 x1000/uL (130-400); RED BLOOD CELL COUNT 3.43 mill/uL (4.7-6.1); RED CELL DISTRIBUTION WIDTH 17.7 % (11.6-14.6)
[2016-12-02 07:17] LABS: CARBON DIOXIDE 26 mEq/L (21-32); CHLORIDE 95 mEq/L (98-107)
[2016-12-02 08:00] VITALS: BP 159/57
[2016-12-02] MEDS ORDERED: MEDICATION NOT ON FORMULARY EA (Cholecalciferol (Vitamin D) 2,000 UNIT) PO SCH (09:00)
[2016-12-02] MEDS ORDERED: AMLODIPINE 5MG TABLET PO SCH (09:00)
[2016-12-02] MEDS ORDERED: LEVOTHYROXINE SODIUM 50MCG TABLET PO SCH (09:00)
[2016-12-02] MEDS: CHOLECALCIFEROL (D3) 1000 UNIT TABLET PO SCH (09:10)
[2016-12-02] MEDS: DOXAZOSIN MESYLATE 2MG TABLET PO SCH (09:11)
[2016-12-02] MEDS: PANTOPRAZOLE 40MG DR TABLET PO SCH (09:12)
[2016-12-02] MEDS: LEVOTHYROXINE SODIUM 50MCG TABLET PO SCH (09:12)
[2016-12-02] MEDS: CARVEDILOL 6.25 MG TABLET PO SCH ×2 (09:13→20:06)
[2016-12-02] MEDS: FUROSEMIDE 80MG TABLET PO SCH (09:17)
[2016-12-02 12:00] VITALS: BP 98/48
[2016-12-02] MEDS: ACETAMINOPHEN 325MG TABLET PO PRN ×2 (13:02→20:06)
[2016-12-02] MEDS ORDERED: VANCOMYCIN 1 G PREMIX 200 ML IV NR (13:30)
[2016-12-02] MEDS ORDERED: VANCOMYCIN 1 G PREMIX 200 ML IV SCH (15:15)
[2016-12-02] MEDS ORDERED: GENTAMICIN 100MG PREMIX 100 ML IV SCH (15:15)
[2016-12-02 16:00] VITALS: BP_SYST 129; BP_SYST 132; BP_DIAS 60; BP_DIAS 63
[2016-12-02 16:10] VITALS: BP_SYST 122; BP_SYST 129; BP_DIAS 60; BP_DIAS 70
[2016-12-02] MEDS: MEGESTROL ACETATE 400 MG/10 ML UDC PO SCH (16:15)
[2016-12-02 20:00] VITALS: BP 144/61
[2016-12-02] MEDS: TRAZODONE HCL 100MG TABLET PO SCH (20:06)
[2016-12-02] MEDS ORDERED: EPOETIN ALFA 4000UNITS/ML VIAL SUBCUT SCH (21:00)
[2016-12-03] VITALS: BP 152/63
[2016-12-03 04:00] VITALS: BP 148/61
[2016-12-03] MEDS: CLONIDINE 0.3MG TABLET PO SCH ×3 (05:57→21:12)
[2016-12-03] MEDS: HYDRALAZINE HCL 50MG TABLET PO SCH ×3 (05:57→21:12)
[2016-12-03 08:00] VITALS: BP 142/61
[2016-12-03] MEDS: MEGESTROL ACETATE 400 MG/10 ML UDC PO SCH (08:43)
[2016-12-03] MEDS: CHOLECALCIFEROL (D3) 1000 UNIT TABLET PO SCH (08:44)
[2016-12-03] MEDS: CARVEDILOL 6.25 MG TABLET PO SCH ×2 (08:44→21:00)
[2016-12-03] MEDS: FUROSEMIDE 80MG TABLET PO SCH (08:45)
[2016-12-03] MEDS: LEVOTHYROXINE SODIUM 50MCG TABLET PO SCH (08:45)
[2016-12-03] MEDS: PANTOPRAZOLE 40MG DR TABLET PO SCH (08:45)
[2016-12-03] MEDS: DOXAZOSIN MESYLATE 2MG TABLET PO SCH (08:45)
[2016-12-03] MEDS: ACETAMINOPHEN 325MG TABLET PO PRN ×2 (09:22→21:12)
[2016-12-03 12:00] VITALS: BP 166/65
[2016-12-03 16:00] VITALS: BP 140/63
[2016-12-03 20:00] VITALS: BP 159/55
[2016-12-03] MEDS: TRAZODONE HCL 100MG TABLET PO SCH (21:11)
[2016-12-03] MEDS: ASCORBIC ACID 250 MG TABLET PO SCH (21:12)
[2016-12-04] VITALS: BP 155/51
[2016-12-04 04:00] VITALS: BP 113/65
[2016-12-04] MEDS: CLONIDINE 0.3MG TABLET PO SCH ×3 (06:00→21:15)
[2016-12-04] MEDS: HYDRALAZINE HCL 50MG TABLET PO SCH ×3 (06:01→21:13)
[2016-12-04] MEDS: ACETAMINOPHEN 325MG TABLET PO PRN ×2 (06:13→21:13)
[2016-12-04 07:13] LABS: BASOPHILS % 0.7 % (0.0-2.0); EOSINOPHILS % 1.9 % (0.0-5.0); HEMOGLOBIN. 10.2 g/dL (14.0-18.0); LYMPHOCYTES % 9.4 % (20.0-50.0); MEAN CORPUSCULAR HEMOGLOBIN 28.3 pg (28.0-32.0); MEAN CORPUSCULAR VOLUME 86.4 fL (80.0-94.0); MEAN PLATELET VOLUME 7.6 fl (7.4-10.4); MONOCYTES % 8.8 % (2.0-8.0); NEUTROPHILS % 79.2 % (40.0-76.0); PLATELET 259 x1000/uL (130-400); RED BLOOD CELL COUNT 3.59 mill/uL (4.7-6.1); RED CELL DISTRIBUTION WIDTH 17.4 % (11.6-14.6)
[2016-12-04 08:00] VITALS: BP 164/69
[2016-12-04] MEDS: MEGESTROL ACETATE 400 MG/10 ML UDC PO SCH ×2 (09:00→09:05)
[2016-12-04] MEDS: FUROSEMIDE 80MG TABLET PO SCH (09:01)
[2016-12-04] MEDS: ASCORBIC ACID 250 MG TABLET PO SCH ×2 (09:01→21:13)
[2016-12-04] MEDS: CHOLECALCIFEROL (D3) 1000 UNIT TABLET PO SCH (09:02)
[2016-12-04] MEDS: FAMOTIDINE 20MG TABLET PO SCH (09:02)
[2016-12-04] MEDS: DOXAZOSIN MESYLATE 2MG TABLET PO SCH (09:02)
[2016-12-04] MEDS: LEVOTHYROXINE SODIUM 50MCG TABLET PO SCH (09:03)
[2016-12-04 12:00] VITALS: BP 159/67
[2016-12-04] MEDS: CARVEDILOL 6.25 MG TABLET PO SCH ×2 (12:50→21:14)
[2016-12-04 16:00] VITALS: BP 183/75
[2016-12-04 20:00] VITALS: BP 161/57
[2016-12-04] MEDS: TRAZODONE HCL 100MG TABLET PO SCH (21:13)
[2016-12-05] VITALS: BP 173/71
[2016-12-05] MEDS: CLONIDINE 0.3MG TABLET PO SCH ×2 (00:27→05:21)
[2016-12-05] MEDS: ACETAMINOPHEN 325MG TABLET PO PRN (02:10)
[2016-12-05 04:00] VITALS: BP 175/69
[2016-12-05] MEDS: HYDRALAZINE HCL 50MG TABLET PO SCH (05:21)
[2016-12-05 06:43] LABS: BASOPHILS % 0.4 % (0.0-2.0); EOSINOPHILS % 2.2 % (0.0-5.0); HEMATOCRIT. 30.4 % (42.0-52.0); HEMOGLOBIN. 10.1 g/dL (14.0-18.0); LYMPHOCYTES % 9.6 % (20.0-50.0); MEAN CORPUSCULAR HEMOGLOBIN 28.7 pg (28.0-32.0); MEAN CORPUSCULAR VOLUME 86.1 fL (80.0-94.0); MEAN PLATELET VOLUME 8.1 fl (7.4-10.4); MONOCYTES % 8.3 % (2.0-8.0); NEUTROPHILS % 79.5 % (40.0-76.0); PLATELET 248 x1000/uL (130-400); RED BLOOD CELL COUNT 3.53 mill/uL (4.7-6.1); RED CELL DISTRIBUTION WIDTH 17.7 % (11.6-14.6)
[2016-12-05 08:00] VITALS: BP 145/68
[2016-12-05] MEDS: CHOLECALCIFEROL (D3) 1000 UNIT TABLET PO SCH (09:16)
[2016-12-05] MEDS: FAMOTIDINE 20MG TABLET PO SCH (09:16)
[2016-12-05] MEDS: MEGESTROL ACETATE 400 MG/10 ML UDC PO SCH (09:16)
[2016-12-05] MEDS: FUROSEMIDE 80MG TABLET PO SCH (09:16)
[2016-12-05] MEDS: LEVOTHYROXINE SODIUM 50MCG TABLET PO SCH (09:17)
[2016-12-05] MEDS: ASCORBIC ACID 250 MG TABLET PO SCH (09:17)
[2016-12-05] MEDS: DOXAZOSIN MESYLATE 2MG TABLET PO SCH (09:17)
[2016-12-05] MEDS: CARVEDILOL 6.25 MG TABLET PO SCH (09:17)
[2016-12-05 12:00] VITALS: BP 152/62
== END 2016-12-05 12:10 | DRG 344 ==
LOC: ER 21:50 → 7WST 12-01 16:13 → ENRESERV 12-01 17:01
PROVIDERS: ADMIT Internal Medicine; ATTEND Internal Medicine
DX: E11.69 Type 2 diabetes mellitus with other specified complication (principal); M86.9 Osteomyelitis, unspecified; I50.33 Acute on chronic diastolic (congestive) heart failure; E43 Unspecified severe protein-calorie malnutrition; J90 Pleural effusion, not elsewhere classified; L89.154 Pressure ulcer of sacral region, stage 4; N18.6 End stage renal disease; E11.22 Type 2 diabetes mellitus with diabetic chronic kidney disease; D63.8 Anemia in other chronic diseases classified elsewhere; I13.2 Hypertensive heart and chronic kidney disease with heart failure and with stage 5 chronic kidney disease, or end stage renal disease; N40.0 Benign prostatic hyperplasia without lower urinary tract symptoms; B95.62 Methicillin resistant Staphylococcus aureus infection as the cause of diseases classified elsewhere; E87.70 Fluid overload, unspecified; Z99.2 Dependence on renal dialysis; Z79.899 Other long term (current) drug therapy; Z88.6 Allergy status to analgesic agent; Z68.24 Body mass index [BMI] 24.0-24.9, adult
CPT/HCPCS: 36415; 71010; 80048; 80053; 80202; 82962; 85025; 87040; 93005; 99285; J0885; J2405; J3370; J7030; J7050

== ENCOUNTER 2018-05-28 11:59 | Inpatient (IN) | payer MEDICARE, MEDICAID ==
[~2018-05-28] VITALS: Ht 175.3 cm; Wt 44.5 kg
[2018-05-28 13:04] LABS: HEMATOCRIT. 29.9 % (42.0-52.0); HEMOGLOBIN. 9.8 g/dL (14.0-18.0); INR 1.1; MEAN CORPUSCULAR HEMOGLOBIN 29.8 pg (28.0-32.0); MEAN CORPUSCULAR VOLUME 90.5 fL (80.0-94.0); MEAN PLATELET VOLUME 8.3 fl (7.4-10.4); PLATELET 250 x1000/uL (130-400); PROTHROMBIN TIME 11.2 sec (9.1-11.1); RED CELL DISTRIBUTION WIDTH 16.3 % (11.6-14.6)
[2018-05-28 13:09] LABS: CHLORIDE 89 mEq/L (98-107)
[2018-05-28] MEDS ORDERED: ONDANSETRON HCL 4MG/2ML INJ IV ONE (13:30)
[2018-05-28] MEDS ORDERED: ASPIRIN 81MG TABLET PO ONE (13:30)
[2018-05-28 13:40] LABS: PLATELET ESTIMATE NORMAL
[2018-05-28] MEDS ORDERED: MAGNESIUM/ALUMINUM HYDROXIDE/SIMETHICONE 30ML UDC PO PRN (14:45)
[2018-05-28] MEDS ORDERED: GUAIFENESIN 200MG/10ML SUGAR FREE UDC PO PRN (14:45)
[2018-05-28] MEDS ORDERED: IPRATROPIUM/ALBUTEROL 0.5-3(2.5)MG/3ML NEB INH PRN (14:45)
[2018-05-28] MEDS ORDERED: ACETAMINOPHEN 325MG TABLET PO PRN (14:45)
[2018-05-28] MEDS ORDERED: DOCUSATE SODIUM 100MG CAPSULE PO PRN (14:45)
[2018-05-28] MEDS: HYDROCODONE/ACETAMINOPHEN 5/325MG TABLET PO PRN ×2 (16:44→20:55)
[2018-05-28] MEDS: CLONIDINE 0.1MG TABLET PO PRN (16:44)
[2018-05-28] MEDS: ONDANSETRON HCL 4MG/2ML INJ IV PRN (23:03)
[2018-05-28 23:40] LABS: CREATINE KINASE MB FRACTION 3.7 ng/mL (0.5-3.6)
[2018-05-29] MEDS: HYDROCODONE/ACETAMINOPHEN 5/325MG TABLET PO PRN (03:40)
[2018-05-29 04:35] LABS: BASOPHILS % 0.5 % (0.0-2.0); EOSINOPHILS % 2.5 % (0.0-5.0); HEMATOCRIT. 30.4 % (42.0-52.0); HEMOGLOBIN. 9.9 g/dL (14.0-18.0); LYMPHOCYTES % 9.5 % (20.0-50.0); MEAN CORPUSCULAR HEMOGLOBIN 29.5 pg (28.0-32.0); MEAN CORPUSCULAR VOLUME 90.3 fL (80.0-94.0); MEAN PLATELET VOLUME 8.2 fl (7.4-10.4); MONOCYTES % 12.6 % (2.0-8.0); NEUTROPHILS % 74.9 % (40.0-76.0); PLATELET 237 x1000/uL (130-400); RED BLOOD CELL COUNT 3.37 mill/uL (4.7-6.1); RED CELL DISTRIBUTION WIDTH 16.3 % (11.6-14.6)
[2018-05-29 04:40] LABS: CHLORIDE 89 mEq/L (98-107)
[2018-05-29 04:51] LABS: CREATINE KINASE 98 IU/L (39-308)
[2018-05-29 04:52] LABS: HDL CHOLESTEROL 52 mg/dL (40-59)
[2018-05-29 04:53] LABS: LDL CHOLESTEROL 27 mg/dL (5-100)
[2018-05-29 04:57] LABS: CREATINE KINASE MB FRACTION 3.2 ng/mL (0.5-3.6)
[2018-05-29] MEDS ORDERED: DEXTROSE 50% WATER 50ML SYRINGE IV PRN (10:15)
[2018-05-29 12:00] VITALS: BP_SYST 192; BP_SYST 195; BP_DIAS 74
[2018-05-29] MEDS: ONDANSETRON HCL 4MG/2ML INJ IV PRN (12:15)
[2018-05-29] MEDS: DIPHENHYDRAMINE 50MG/ML VIAL IV PRN (12:20)
[2018-05-29] MEDS: CLONIDINE 0.1MG TABLET PO PRN ×2 (12:59→18:29)
[2018-05-29] MEDS: BLOOD SUGAR DIAGNOSTIC STRIP TEST SCH ×3 (13:30→21:25)
[2018-05-29] MEDS: INSULIN LISPRO 100 UNITS/ML SUBCUT SCH ×3 (13:37→21:25)
[2018-05-29] MEDS: LORAZEPAM 0.5MG TABLET PO PRN (13:44)
[2018-05-29 13:58] VITALS: BP 138/57
[2018-05-29] MEDS ORDERED: IPRATROPIUM/ALBUTEROL 0.5-3(2.5)MG/3ML NEB HHN PRN (15:45)
[2018-05-29 16:00] VITALS: BP 197/67
[2018-05-29] MEDS: AMLODIPINE 5MG TABLET PO SCH (18:27)
[2018-05-29 20:00] VITALS: BP 186/69
[2018-05-29] MEDS ORDERED: LISINOPRIL 10MG TABLET PO SCH (21:00)
[2018-05-29] MEDS: MIRTAZAPINE 15MG TABLET PO SCH (21:25)
[2018-05-30] VITALS (7 sets, daily range): BP systolic 138–193; BP diastolic 55–86
[2018-05-30] MEDS: DIPHENHYDRAMINE 50MG/ML VIAL IV PRN (01:16)
[2018-05-30 06:33] LABS: HEMATOCRIT. 29.7 % (42.0-52.0); HEMOGLOBIN. 9.7 g/dL (14.0-18.0); MEAN CORPUSCULAR HEMOGLOBIN 29.5 pg (28.0-32.0); MEAN CORPUSCULAR VOLUME 90.5 fL (80.0-94.0); MEAN PLATELET VOLUME 8.7 fl (7.4-10.4); PLATELET 256 x1000/uL (130-400); RED BLOOD CELL COUNT 3.28 mill/uL (4.7-6.1); RED CELL DISTRIBUTION WIDTH 16.1 % (11.6-14.6)
[2018-05-30] MEDS: CLONIDINE 0.1MG TABLET PO PRN ×4 (06:58→18:55)
[2018-05-30] MEDS: INSULIN LISPRO 100 UNITS/ML SUBCUT SCH ×4 (08:10→21:00)
[2018-05-30] MEDS: BLOOD SUGAR DIAGNOSTIC STRIP TEST SCH ×4 (08:13→21:00)
[2018-05-30] MEDS: ONDANSETRON HCL 4MG/2ML INJ IV PRN (10:45)
[2018-05-30] MEDS: HYDROCODONE/ACETAMINOPHEN 5/325MG TABLET PO PRN (10:46)
[2018-05-30] MEDS: LORAZEPAM 0.5MG TABLET PO PRN (11:01)
[2018-05-30] MEDS: BACITRACIN 15GM TUBE TOP SCH ×2 (11:02→21:00)
[2018-05-30 14:07] LABS: PLATELET ESTIMATE NORMAL
[2018-05-30] MEDS: AMLODIPINE 5MG TABLET PO SCH ×2 (17:40→17:41)
[2018-05-30] MEDS: MIRTAZAPINE 15MG TABLET PO SCH (20:57)
[2018-05-30] MEDS: LISINOPRIL 10MG TABLET PO SCH (20:57)
[2018-05-31] VITALS (12 sets, daily range): BP systolic 120–199; BP diastolic 62–90
[2018-05-31] MEDS: HYDROCODONE/ACETAMINOPHEN 5/325MG TABLET PO PRN ×2 (01:30→12:09)
[2018-05-31] MEDS: CLONIDINE 0.1MG TABLET PO PRN ×2 (01:40→20:53)
[2018-05-31 06:43] LABS: BASOPHILS % 0.8 % (0.0-2.0); EOSINOPHILS % 1.6 % (0.0-5.0); HEMATOCRIT. 29.2 % (42.0-52.0); HEMOGLOBIN. 9.5 g/dL (14.0-18.0); LYMPHOCYTES % 8.9 % (20.0-50.0); MEAN CORPUSCULAR HEMOGLOBIN 29.4 pg (28.0-32.0); MEAN CORPUSCULAR VOLUME 90.1 fL (80.0-94.0); MEAN PLATELET VOLUME 8.3 fl (7.4-10.4); MONOCYTES % 12.9 % (2.0-8.0); NEUTROPHILS % 75.8 % (40.0-76.0); PLATELET 269 x1000/uL (130-400); RED BLOOD CELL COUNT 3.24 mill/uL (4.7-6.1); RED CELL DISTRIBUTION WIDTH 16.5 % (11.6-14.6)
[2018-05-31] MEDS: BLOOD SUGAR DIAGNOSTIC STRIP TEST SCH ×4 (07:41→20:57)
[2018-05-31] MEDS: INSULIN LISPRO 100 UNITS/ML SUBCUT SCH ×4 (07:42→21:03)
[2018-05-31] MEDS ORDERED: REGADENOSON 0.4 MG/5 ML IV ONE (09:54)
[2018-05-31] MEDS ORDERED: REGADENOSON 0.4 MG/5 ML IV NR (11:00)
[2018-05-31] MEDS: LISINOPRIL 10MG TABLET PO SCH ×2 (12:09→20:53)
[2018-05-31] MEDS: AMLODIPINE 5MG TABLET PO SCH ×2 (12:09→17:38)
[2018-05-31] MEDS: BACITRACIN 15GM TUBE TOP SCH ×2 (12:16→21:04)
[2018-05-31] MEDS: HYDRALAZINE HCL 50MG TABLET PO SCH ×2 (17:39→20:54)
[2018-05-31] MEDS: MIRTAZAPINE 15MG TABLET PO SCH (20:53)
[2018-05-31] MEDS ORDERED: DOXAZOSIN MESYLATE 2MG TABLET PO SCH (21:00)
[2018-05-31] MEDS: LORAZEPAM 0.5MG TABLET PO PRN (21:03)
[2018-06-01] MEDS ORDERED: EPOETIN ALFA 4000UNITS/ML VIAL SUBCUT SCH (21:00)
== END 2018-05-31 22:00 | DRG 189 ==
LOC: ER 11:59 → 7WST 14:24 → EDBEDREQ 14:30 → ENRESERV 05-29 07:59
PROVIDERS: ADMIT Internal Medicine; ATTEND Internal Medicine
PROC: 5A1D70Z Performance of Urinary Filtration, Intermittent, Less than 6 Hours Per Day (ICD-10-PCS; principal; 2018-05-29)
PROC: 5A1D70Z Performance of Urinary Filtration, Intermittent, Less than 6 Hours Per Day (ICD-10-PCS; 2018-05-31)
DX: J96.00 Acute respiratory failure, unspecified whether with hypoxia or hypercapnia (principal); E43 Unspecified severe protein-calorie malnutrition; N18.6 End stage renal disease; E87.1 Hypo-osmolality and hyponatremia; I13.2 Hypertensive heart and chronic kidney disease with heart failure and with stage 5 chronic kidney disease, or end stage renal disease; I50.42 Chronic combined systolic (congestive) and diastolic (congestive) heart failure; Z68.1 Body mass index [BMI] 19.9 or less, adult; D63.8 Anemia in other chronic diseases classified elsewhere; E11.22 Type 2 diabetes mellitus with diabetic chronic kidney disease; E83.51 Hypocalcemia; F32.9 Major depressive disorder, single episode, unspecified; L89.90 Pressure ulcer of unspecified site, unspecified stage; I27.20 Pulmonary hypertension, unspecified; N40.0 Benign prostatic hyperplasia without lower urinary tract symptoms; F41.9 Anxiety disorder, unspecified; I34.0 Nonrheumatic mitral (valve) insufficiency; N40.1 Benign prostatic hyperplasia with lower urinary tract symptoms; Z99.2 Dependence on renal dialysis; Z88.5 Allergy status to narcotic agent
CPT/HCPCS: 36415; 71045; 78452; 80048; 80061; 82550; 82553; 82962; 83735; 83880; 84100; 84443; 84484; 92610; 93005; 93017; 93306; 93970; 96374; 97162; 97166; 99285; A6261; A9500; J1200; J1815; J2405; J2785

== ENCOUNTER 2018-07-02 13:41 | Inpatient (IN) | payer MEDICARE, MEDICAID ==
[~2018-07-02] VITALS: Ht 170.2 cm; Wt 56.2 kg
[2018-07-02 15:18] LABS: HEMATOCRIT. 29.3 % (42.0-52.0); HEMOGLOBIN. 9.8 g/dL (14.0-18.0); MEAN CORPUSCULAR HEMOGLOBIN 30.1 pg (28.0-32.0); MEAN PLATELET VOLUME 8.2 fl (7.4-10.4); PLATELET 209 x1000/uL (130-400); RED BLOOD CELL COUNT 3.26 mill/uL (4.7-6.1); RED CELL DISTRIBUTION WIDTH 17.4 % (11.6-14.6)
[2018-07-02 15:22] LABS: INR 1.1; PARTIAL THROMBOPLASTIN TIME 36.4 sec (23.4-31.0); PROTHROMBIN TIME 11.1 sec (9.6-11.0)
[2018-07-02 15:27] LABS: CHLORIDE 88 mEq/L (98-107)
[2018-07-02] MEDS ORDERED: ENALAPRIL 2.5MG/2ML VIAL 2ML IV ONE (15:30)
[2018-07-02] MEDS ORDERED: ONDANSETRON HCL 4MG/2ML INJ IV ONE (15:30)
[2018-07-02] MEDS ORDERED: NITROGLYCERIN OINT 1GM/INCH UDPKT TD ONE (15:30)
[2018-07-02] MEDS ORDERED: TRAMADOL 50MG TABLET PO ONE (15:30)
[2018-07-02 15:33] LABS: PHOSPHORUS 2.9 mg/dL (2.5-4.9)
[2018-07-02 15:39] LABS: PLATELET ESTIMATE NORMAL
[2018-07-02] MEDS ORDERED: IPRATROPIUM/ALBUTEROL 0.5-3(2.5)MG/3ML NEB INH PRN (17:00)
[2018-07-02] MEDS ORDERED: DIPHENHYDRAMINE 50MG/ML VIAL IV PRN (17:00)
[2018-07-02] MEDS ORDERED: MAGNESIUM/ALUMINUM HYDROXIDE/SIMETHICONE 30ML UDC PO PRN (17:00)
[2018-07-02] MEDS ORDERED: ONDANSETRON HCL 4MG/2ML INJ IV PRN (17:00)
[2018-07-02] MEDS ORDERED: DOCUSATE SODIUM 100MG CAPSULE PO PRN (17:00)
[2018-07-02 17:38] LABS: PHOSPHORUS 3.6 mg/dL (2.5-4.9)
[2018-07-02] MEDS ORDERED: HYDRALAZINE 20MG/ML VIAL IV ONE (18:00)
[2018-07-02] MEDS ORDERED: POTASSIUM CHLORIDE 20MEQ TABLET SR PO SCH (19:00)
[2018-07-02] MEDS: CLONIDINE 0.1MG TABLET PO PRN ×2 (20:51→22:21)
[2018-07-02 21:00] LABS: CREATINE KINASE MB FRACTION 6.8 ng/mL (0.5-3.6)
[2018-07-02 21:45] VITALS: BP 198/82
[2018-07-02] MEDS: HYDROCODONE/ACETAMINOPHEN 5/325MG TABLET PO PRN (22:21)
[2018-07-02 23:19] VITALS: BP 198/82
[2018-07-03] VITALS (8 sets, daily range): BP systolic 129–181; BP diastolic 34–78
[2018-07-03] MEDS: HYDROCODONE/ACETAMINOPHEN 5/325MG TABLET PO PRN ×3 (02:29→23:08)
[2018-07-03 06:58] LABS: CHLORIDE 87 mEq/L (98-107)
[2018-07-03 07:00] LABS: BASOPHILS % 0.7 % (0.0-2.0); EOSINOPHILS % 2.7 % (0.0-5.0); HEMOGLOBIN. 9.4 g/dL (14.0-18.0); LYMPHOCYTES % 8.4 % (20.0-50.0); MEAN CORPUSCULAR HEMOGLOBIN 29.5 pg (28.0-32.0); MEAN CORPUSCULAR VOLUME 90.6 fL (80.0-94.0); MEAN PLATELET VOLUME 8.5 fl (7.4-10.4); MONOCYTES % 10.3 % (2.0-8.0); NEUTROPHILS % 77.9 % (40.0-76.0); PLATELET 213 x1000/uL (130-400); RED CELL DISTRIBUTION WIDTH 17.5 % (11.6-14.6)
[2018-07-03 07:10] LABS: LDL CHOLESTEROL 28 mg/dL (5-100)
[2018-07-03 07:11] LABS: CREATINE KINASE 236 IU/L (39-308); HDL CHOLESTEROL 40 mg/dL (40-59)
[2018-07-03 07:14] LABS: CREATINE KINASE MB FRACTION 4.5 ng/mL (0.5-3.6)
[2018-07-03] MEDS ORDERED: LIDOCAINE HCL 1% 20ML VIAL (Pyxis) INJ ONE (14:13)
[2018-07-03] MEDS ORDERED: SODIUM BICARBONATE 4% (2.4MEQ) 5ML VIAL IV ONE (14:13)
[2018-07-03] MEDS: AZITHROMYCIN 500 MG in DEXT 5% WATER 250 ML IV SCH (18:28)
[2018-07-03] MEDS: CLONIDINE 0.1MG TABLET PO PRN (18:37)
[2018-07-03] MEDS: ACETAMINOPHEN 325MG TABLET PO PRN (18:37)
[2018-07-03] MEDS ORDERED: DEXTROSE 50% WATER 50ML SYRINGE IV PRN (19:00)
[2018-07-03] MEDS: INSULIN LISPRO 100 UNITS/ML SUBCUT SCH (21:00)
[2018-07-03] MEDS: BLOOD SUGAR DIAGNOSTIC STRIP TEST SCH (21:47)
[2018-07-03] MEDS: HYDRALAZINE 20MG/ML VIAL IV PRN (23:47)
[2018-07-04] VITALS: BP 168/62
[2018-07-04] MEDS ORDERED: HYDRALAZINE 20MG/ML VIAL IV SCH
[2018-07-04] MEDS: GUAIFENESIN 200MG/10ML SUGAR FREE UDC PO PRN (02:02)
[2018-07-04 04:00] VITALS: BP 156/62
[2018-07-04] MEDS: BLOOD SUGAR DIAGNOSTIC STRIP TEST SCH ×4 (05:30→21:00)
[2018-07-04 08:00] VITALS: BP 149/68
[2018-07-04] MEDS: INSULIN LISPRO 100 UNITS/ML SUBCUT SCH ×4 (08:10→21:00)
[2018-07-04] MEDS: HYDROCODONE/ACETAMINOPHEN 5/325MG TABLET PO PRN ×2 (08:26→23:53)
[2018-07-04] MEDS ORDERED: LISINOPRIL 5MG TABLET PO SCH (09:30)
[2018-07-04 12:00] VITALS: BP 158/55
[2018-07-04 16:00] VITALS: BP 169/62
[2018-07-04] MEDS: NEOMY SULF/BACITRAC ZN/POLY OINT 28GM TOP SCH ×2 (18:32→21:00)
[2018-07-04] MEDS: AZITHROMYCIN 500 MG in DEXT 5% WATER 250 ML IV SCH (18:35)
[2018-07-04 20:00] VITALS: BP 202/88
[2018-07-04] MEDS: CLONIDINE 0.1MG TABLET PO PRN (20:09)
[2018-07-04] MEDS: EPOETIN ALFA 4000UNITS/ML VIAL SUBCUT SCH (22:07)
[2018-07-04] MEDS: ACETAMINOPHEN 325MG TABLET PO PRN (23:40)
[2018-07-04] MEDS: HYDRALAZINE 20MG/ML VIAL IV PRN (23:41)
[2018-07-05] VITALS (10 sets, daily range): BP systolic 124–199; BP diastolic 51–86
[2018-07-05 06:46] LABS: HEMATOCRIT. 27.8 % (42.0-52.0); HEMOGLOBIN. 9.2 g/dL (14.0-18.0); MEAN CORPUSCULAR HEMOGLOBIN 30.3 pg (28.0-32.0); MEAN CORPUSCULAR VOLUME 91.5 fL (80.0-94.0); MEAN PLATELET VOLUME 7.8 fl (7.4-10.4); PLATELET 199 x1000/uL (130-400); RED BLOOD CELL COUNT 3.04 mill/uL (4.7-6.1); RED CELL DISTRIBUTION WIDTH 17.4 % (11.6-14.6)
[2018-07-05] MEDS: BLOOD SUGAR DIAGNOSTIC STRIP TEST SCH ×4 (07:30→21:00)
[2018-07-05] MEDS: INSULIN LISPRO 100 UNITS/ML SUBCUT SCH ×4 (07:30→21:00)
[2018-07-05 08:36] LABS: PLATELET ESTIMATE NORMAL
[2018-07-05] MEDS: NEOMY SULF/BACITRAC ZN/POLY OINT 28GM TOP SCH ×2 (09:51→21:38)
[2018-07-05] MEDS: CLONIDINE 0.1MG TABLET PO PRN (10:09)
[2018-07-05] MEDS: LISINOPRIL 10MG TABLET PO SCH ×2 (12:24→21:37)
[2018-07-05] MEDS: AMLODIPINE 5MG TABLET PO SCH (12:59)
[2018-07-05] MEDS: HYDROCODONE/ACETAMINOPHEN 5/325MG TABLET PO PRN ×2 (13:00→18:54)
[2018-07-05] MEDS: CLONIDINE 0.3MG TABLET PO SCH ×2 (14:56→21:38)
[2018-07-05] MEDS: HYDRALAZINE HCL 50MG TABLET PO SCH ×2 (14:56→21:38)
[2018-07-05] MEDS: AZITHROMYCIN 500 MG in DEXT 5% WATER 250 ML IV SCH (18:55)
[2018-07-05] MEDS: CARVEDILOL 6.25 MG TABLET PO SCH (21:37)
[2018-07-05] MEDS: GUAIFENESIN 200MG/10ML SUGAR FREE UDC PO PRN (21:45)
[2018-07-06] VITALS (9 sets, daily range): BP systolic 135–168; BP diastolic 53–72
[2018-07-06] MEDS: HYDRALAZINE HCL 50MG TABLET PO SCH ×3 (06:29→21:53)
[2018-07-06] MEDS: CLONIDINE 0.3MG TABLET PO SCH ×3 (06:29→21:54)
[2018-07-06 07:03] LABS: HEMATOCRIT. 27.5 % (42.0-52.0); HEMOGLOBIN. 9.1 g/dL (14.0-18.0); MEAN CORPUSCULAR HEMOGLOBIN 30.4 pg (28.0-32.0); MEAN CORPUSCULAR VOLUME 91.8 fL (80.0-94.0); MEAN PLATELET VOLUME 8.5 fl (7.4-10.4); PLATELET 202 x1000/uL (130-400); RED BLOOD CELL COUNT 2.99 mill/uL (4.7-6.1); RED CELL DISTRIBUTION WIDTH 17.6 % (11.6-14.6)
[2018-07-06] MEDS: INSULIN LISPRO 100 UNITS/ML SUBCUT SCH ×4 (07:39→21:00)
[2018-07-06] MEDS: BLOOD SUGAR DIAGNOSTIC STRIP TEST SCH ×4 (07:40→21:34)
[2018-07-06 07:43] LABS: T4 FREE 1.1 ng/dL (0.76-1.46)
[2018-07-06 08:50] LABS: PLATELET ESTIMATE NORMAL
[2018-07-06] MEDS: CARVEDILOL 6.25 MG TABLET PO SCH ×2 (09:00→21:00)
[2018-07-06] MEDS: LISINOPRIL 10MG TABLET PO SCH ×2 (09:55→21:53)
[2018-07-06] MEDS: AMLODIPINE 5MG TABLET PO SCH (09:55)
[2018-07-06] MEDS: NEOMY SULF/BACITRAC ZN/POLY OINT 28GM TOP SCH ×2 (13:18→21:56)
[2018-07-06] MEDS ORDERED: LISI10TA5 PO (15:00)
[2018-07-06] MEDS ORDERED: NEOM28OI36 TOP (15:00)
[2018-07-06] MEDS ORDERED: AZIT500T5 MT (15:00)
[2018-07-06] MEDS: AZITHROMYCIN 500 MG in DEXT 5% WATER 250 ML IV SCH (19:49)
[2018-07-06] MEDS: EPOETIN ALFA 4000UNITS/ML VIAL SUBCUT SCH (21:53)
[2018-07-06] MEDS: GUAIFENESIN 200MG/10ML SUGAR FREE UDC PO PRN (23:39)
== END 2018-07-06 23:52 | DRG 193 ==
LOC: ER 13:41 → EDBEDREQ 13:58 → 7WST 15:20 → EDBEDREQ 15:25 → ENRESERV 20:28
PROVIDERS: ADMIT Internal Medicine; ATTEND Internal Medicine
PROC: 05PYX3Z Removal of Infusion Device from Upper Vein, External Approach (ICD-10-PCS; principal; 2018-07-03)
PROC: 5A1D70Z Performance of Urinary Filtration, Intermittent, Less than 6 Hours Per Day (ICD-10-PCS; 2018-07-03)
PROC: 5A1D70Z Performance of Urinary Filtration, Intermittent, Less than 6 Hours Per Day (ICD-10-PCS; 2018-07-05)
DX: J18.1 Lobar pneumonia, unspecified organism (principal); N18.6 End stage renal disease; I50.32 Chronic diastolic (congestive) heart failure; E46 Unspecified protein-calorie malnutrition; I12.0 Hypertensive chronic kidney disease with stage 5 chronic kidney disease or end stage renal disease; J90 Pleural effusion, not elsewhere classified; E87.1 Hypo-osmolality and hyponatremia; I13.11 Hypertensive heart and chronic kidney disease without heart failure, with stage 5 chronic kidney disease, or end stage renal disease; Z68.1 Body mass index [BMI] 19.9 or less, adult; D63.8 Anemia in other chronic diseases classified elsewhere; N40.0 Benign prostatic hyperplasia without lower urinary tract symptoms; E11.22 Type 2 diabetes mellitus with diabetic chronic kidney disease; F20.9 Schizophrenia, unspecified; F32.9 Major depressive disorder, single episode, unspecified; F41.9 Anxiety disorder, unspecified; I16.0 Hypertensive urgency; K80.20 Calculus of gallbladder without cholecystitis without obstruction; Z79.890 Hormone replacement therapy; Z99.2 Dependence on renal dialysis; Z88.5 Allergy status to narcotic agent; L89.159 Pressure ulcer of sacral region, unspecified stage
CPT/HCPCS: 36415; 36589; 71045; 76700; 80048; 80061; 82550; 82553; 82962; 83036; 83735; 84100; 84134; 84439; 84443; 84481; 84484; 87493; 93005; 93970; 96374; 96375; 97162; 97166; 99291; A6261; J0360; J0456; J0885; J1200; J2405; J3490; J7040; J7060